=== PATIENT | female | born 1950 | race Caucasian/White ===

== ENCOUNTER → 2016-08-25 | Outpatient (CLI) | payer OTHER ==
--- NOTE | 2016-08-25 11:31 | US ---
EXAM DESCRIPTION: MAMMO BREAST DIAGNOSTIC UNILATERAL ; US BREAST UNILATERAL Images were reviewed with R2 computer-aided detection. CLINICAL HISTORY: Six-month followup probably benign nodule right breast 10 o'clock. COMPARISON: Ultrasound from 02/11/2016 and baseline mammogram from 01/25/2016. FINDINGS: True lateral and spot compression films demonstrated a well-defined nodule right breast 10 o'clock with fatty hilum not definitively confirmed. The glandular tissue is near completely fatty involuted. Skin calcifications are seen medially in the breast. Directed ultrasound confirms a fatty hilum period no sonographically suspicious finding. IMPRESSION: Benign exam. Small nodule upper outer right breast 10 o'clock corresponds to an intramammary lymph node. BIRAD CATEGORY: 2 BENIGN RECOMMENDATION: FOLLOW-UP: Routine annual mammography with exam due in January 2017. Findings and recommendations were communicated to the patient by the technologist. According to the [employer], yearly mammograms are recommended starting at age 40 and continuing as long as a woman is in good health. Any breast change noted on a breast self-exam should be reported promptly to the patient's healthcare provider. Breast MRI is recommended for women with an approximately 20-25% or greater lifetime risk of breast cancer, including women with a strong family history of breast or ovarian cancer and women who have been treated for Hodgkin's disease. Electronically signed by: Carmel Velasquez 08/25/2016 11:29
== END | disposition home or self-care (01) ==
LOC: MAMMO 10:19
PROVIDERS: ATTEND Family Medicine
DX: R92.8 Other abnormal and inconclusive findings on diagnostic imaging of breast (principal)

== ENCOUNTER → 2016-12-13 | Outpatient (CLI) | payer OTHER ==
--- NOTE | 2016-12-13 10:22 | CT ---
EXAM DESCRIPTION: Abdoment/Pelvis w/o Contrast CLINICAL HISTORY: GENERALIZED ABDOMINAL PAIN COMPARISON: None Available TECHNIQUE: CT of the abdomen and Pelvis was performed without IV contrast. This exam was performed according to our departmental dose-optimization program, which includes automated exposure control, adjustment of the mA and/or kV according to patient size and/or use of iterative reconstruction technique. FINDINGS: There is no lung base abnormality. No pneumoperitoneum, ascites or adenopathy. There are mural calcifications in the abdominal aorta without aneurysm. There are few tiny calcified gallstones in the gallbladder without pericholecystic inflammation or fluid. The liver, spleen, kidneys and adrenals are unremarkable for noncontrast technique. There are a few tiny pancreatic calcifications which may be related to remote pancreatitis, but the pancreas is otherwise unremarkable for noncontrast technique. No dilated small bowel loops. Normal appendix. The uterus and ovaries are unremarkable for patient's age. No bladder wall thickening. There is a moderate amount stool and gas scattered throughout the colon without colonic wall thickening or pericolonic inflammation. There are degenerative changes in the lumbar spine multiple levels. There is an old L4 compression fracture resulting in approximately 60% loss of vertebral body height. IMPRESSION: Cholelithiasis without CT evidence of cholecystitis. No additional intra-abdominal abnormality to explain generalized abdominal pain. Old L4 compression fracture and degenerative changes. Electronically signed by: Walker Soares MD 12/13/2016 10:22 AM CDT Workstation: [id number]
== END | disposition home or self-care (01) ==
LOC: CT 07:39
PROVIDERS: ATTEND Family Medicine
DX: R10.84 Generalized abdominal pain (principal)

== ENCOUNTER 2017-01-09 05:57 | Day surgery (SDC) | payer OTHER ==
--- NOTE | 2017-01-04 08:21 | RAD ---
EXAM DESCRIPTION: Chest,2 Views CLINICAL HISTORY: 66 years Female, preoperative evaluation. COMPARISON: None. IMPRESSION: Heart size and pulmonary vascularity are within normal limits. The thoracic aorta is tortuous and contains mild calcific plaque. The lungs are hyperexpanded. There is no airspace consolidation, pleural effusion, or pneumothorax. Moderate anterior wedging of a midthoracic vertebral body which is age-indeterminate. Correlate for point tenderness and consider follow-up MRI if indicated. Electronically signed by: Dipesh Rose MD 01/04/2017 8:20 AM CDT
[2017-01-09] MEDS ORDERED: levoFLOXacin 500MG IV 100 ML IVPB ONE (06:56)
[2017-01-09] MEDS ORDERED: LACTATED RINGERS 1,000 ML ONE (06:56)
[2017-01-09] MEDS ORDERED: fentaNYL CITRATE INJ 50 MCG/ML AMP ONE (07:49)
[2017-01-09] MEDS ORDERED: LIDOCAINE 2 % GEL 5 ML TUBE TOP ONE (07:49)
[2017-01-09] MEDS ORDERED: ROCURONIUM BROMIDE 10 MG/ML VIAL ONE (07:49)
[2017-01-09] MEDS ORDERED: BUPIVACAINE 0.25% W/EPI 50 ML VIAL INJ ONE (08:27)
[2017-01-09] MEDS ORDERED: HEPARIN SODIUM (PORCINE) 10,000 UNITS/ML VIAL ONE (08:27)
[2017-01-09] MEDS ORDERED: levoFLOXacin 500MG IV 500 MG/100 ML BAG IVPB ONE (08:40)
[2017-01-09] MEDS ORDERED: NALOXONE HCL INJ 0.4 MG/ML VIAL ONE (10:08)
[2017-01-09] MEDS ORDERED: HYDROcodone 5MG/APAP 325MG 1 EA TAB PO ONE (11:10)
[2017-01-09] MEDS ORDERED: HYDROcodone 5MG/APAP 325MG 1 EA TAB ONE (11:12)
--- NOTE | 2017-01-09 11:45 | OP ---
DATE OF PROCEDURE: 01/09/17 PREOPERATIVE DIAGNOSIS: 1. Symptomatic cholelithiasis. POSTOPERATIVE DIAGNOSIS: 1. Symptomatic cholelithiasis. 2. Chronic cholecystitis. PROCEDURE: 1. Laparoscopic cholecystectomy with intraoperative cholangiography using fluoroscopy. SURGEON: Efren Patel MD. SUPERVISOR [employer] DIVISION: None. ANESTHESIA: Local infiltration of 0.25% Marcaine with epinephrine and general endotracheal anesthesia. INDICATION: The patient is a 66-year-old female who has had gallbladder symptoms for many years. She has recently had increasing right upper quadrant tenderness, belching, flatus and fatty food intolerance. She has a CT scan showing gallstones. 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 The patient continued her aspirin preoperatively. FINDINGS: The gallbladder had multiple adhesions to the gallbladder. Otherwise, it was thin walled. There were multiple small stones. Intraoperative cholangiography revealed no filling defects, but the bile duct was somewhat dilated and early and initial installation of contrast did not show good flow into the duodenum, however, when it was completely filled, it emptied easily into the duodenum. There were also no strictures identified. DESCRIPTION OF PROCEDURE: After adequate general endotracheal anesthesia was obtained, the patient was prepped and draped in the usual sterile manner. Preoperative antibiotics were given. Surgical time-out was taken. The infraumbilical area was infiltrated with 0.25% Marcaine with epinephrine. A curvilinear incision was fashioned in the infraumbilical area and dissection was carried down through the subcutaneous tissue to the midline fascia. Traction sutures were placed on either side of the midline. A small incision was made in the midline fascia and the peritoneum was opened bluntly. Sommer trocar was introduced under direct vision into the abdominal cavity and fixed in place with the 20 mL balloon. CO2 was then insufflated until a pressure of 12 mmHg was reached and the abdomen was tympanitic in all four quadrants. When this was done, the laparoscope was introduced. The abdomen was inspected with the previously noted findings. The patient was then placed in reverse Trendelenburg position, turned to the left side. The upper abdominal ports were placed under direct vision. The gallbladder was grasped, retracted anteriorly and superiorly. The adhesions to the gallbladder were then taken down using electrocautery and blunt dissection. The neck of the gallbladder was retracted laterally. The triangle of Calot was then explored with the cystic duct was hemoclipped once proximally. The cystic artery was hemoclipped twice proximally and once distally on each branch. A small incision was made in the cystic duct. The cholangiogram catheter was introduced through a separate stab wound in the right upper quadrant, introduced into the cystic duct and clipped in place. Cholangiograms were then taken using fluoroscopy which revealed free flow into the duodenum after the initial delay, then no filling defects or strictures noted. When this was done, the cystic duct catheter was removed. The cystic duct was hemoclipped three times distally and divided between the hemoclips. The cystic artery was divided. The gallbladder was then easily dissected free from the gallbladder bed of the liver using electrocautery. The gallbladder was placed in an EndoCatch bag and removed from the infraumbilical port site in the usual manner under direct vision. When this was done, the subhepatic space and subphrenic space were irrigated copiously with saline. The effluent was noted to be clear. The subha hepatis was inspected and no bleeding or bile leak was identified. The upper abdominal ports were removed under direct vision and good hemostasis was noted. At this point, the CO2, the laparoscope and the infraumbilical port were removed. The infraumbilical port site fascia was approximated with a single [id number] suture of 0 Vicryl. Subcutaneous tissue was irrigated with saline. Skin edges were approximated with 4-0 Vicryl subcuticular sutures, benzoin and Steri- Strips. Sterile dressings were applied. The patient was awakened and taken to the Recovery Room in good and stable condition. Estimated blood loss was less than 25 mL. All sponge, needle and instrument counts were correct. #[id number] [facility]
[2017-01-09] MEDS ORDERED: ePHEDrine SULF 50 MG/ML IV ONE (12:00)
[2017-01-09] MEDS ORDERED: ATROPINE SULFATE 0.4 MG/ML 1ML VIAL IV ONE (12:00)
[2017-01-09] MEDS ORDERED: LIDOCAINE 1% 10 ML VIAL INJ ONE (12:00)
[2017-01-09] MEDS ORDERED: PROPOFOL 200 MG/20 ML VIAL IV ONE (12:00)
[2017-01-09] MEDS ORDERED: NEOSTIGMINE METHYLSULFATE 1 MG/ML ML IV ONE (12:00)
[2017-01-09 12:32] VITALS: BP 156/84; TEMP 97.8; O2SAT 96
== END 2017-01-09 12:20 | disposition home or self-care (01) ==
LOC: AMB 05:57
PROVIDERS: ATTEND Surgery
DX: K80.10 Calculus of gallbladder with chronic cholecystitis without obstruction (principal); I10 Essential (primary) hypertension; E11.9 Type 2 diabetes mellitus without complications; K21.9 Gastro-esophageal reflux disease without esophagitis; E78.5 Hyperlipidemia, unspecified; F17.210 Nicotine dependence, cigarettes, uncomplicated; F41.9 Anxiety disorder, unspecified; G47.30 Sleep apnea, unspecified; G89.29 Other chronic pain; M54.5 Low back pain; R00.1 Bradycardia, unspecified; M85.80 Other specified disorders of bone density and structure, unspecified site; M25.559 Pain in unspecified hip; Z88.8 Allergy status to other drugs, medicaments and biological substances; Z79.82 Long term (current) use of aspirin; Z79.84 Long term (current) use of oral hypoglycemic drugs; Z79.899 Other long term (current) drug therapy
CPT/HCPCS: 00790; 36415; 36416; 47563; 71020; 76000; 80053; 81001; 82948; 85025; 87086; 93005; J1644; J1956; J2310; J2710; J3010; J3490; J7120

== ENCOUNTER → 2017-05-05 | Outpatient (CLI) | payer OTHER | END | disposition home or self-care (01) | LOC: GMAH 10:10 | PROVIDERS: ATTEND Family Medicine | DX: E78.2 Mixed hyperlipidemia (principal) ==

== ENCOUNTER → 2018-05-24 | Outpatient (CLI) | payer OTHER | LOC: GMAH 11:32 | PROVIDERS: ATTEND Family Medicine | DX: I10 Essential (primary) hypertension (principal); E78.2 Mixed hyperlipidemia; E11.9 Type 2 diabetes mellitus without complications ==

== ENCOUNTER 2019-07-05 10:13 | Emergency (ER) | payer OTHER ==
[2019-07-05] MEDS ORDERED: MORPHINE SULFATE INJ 10 MG/ML VIAL IV ONE ×2 (10:29→12:28)
[2019-07-05] MEDS ORDERED: ONDANSETRON INJ 4 MG/2 ML VIAL IV ONE (10:30)
--- NOTE | 2019-07-05 10:34 | ED.PDOC ---
History of Present Illness - General Chief Complaint: Trauma Stated Complaint: R arm/shoulder pain, L forearm pain Time Seen by Provider: 07/05/19 10:17 Source: patient, RN notes reviewed, Vital Signs reviewed, family - daughter Exam Limitations: no limitations - History of Present Illness Initial Comments: patient is a 69-year-old white female who presents to the emergency Department with complaints of right arm pain as well as left elbow and forearm pain status post trip and fall at her daughter's home. She denies any head injuries, loss of consciousness or nausea. Patient with significant right upper arm and shoulder pain. Patient denies any headache, blurry vision, nausea, vomiting, diarrhea, chest pain, shortness of breath. The pain is 9 out of 10. It is throbbing and sharp. Palpation or movement. Better with rest though it does not completely relieve the pain. Every onset right after the fall. Timing/Duration: 1/2 hour Severity: severe Improving Factors: immobilization, rest Worsening Factors: movement Associated Symptoms: denies symptoms Allergies/Adverse Reactions: Allergies NO KNOWN ALLERGY Allergy (Verified 01/04/17 07:40) Home Medications: Ambulatory Orders ALPRAZolam [Xanax] 0.5 mg PO TID 01/04/17 Aspirin [Aspirin Adult Low Dose] 81 mg PO DAILY@0701/04/17 Lisinopril 20 mg PO DAILY@0701/04/17 Meloxicam 7.5 mg PO DAILY 01/04/17 Metformin HCl [Metformin Hydrochloride] 1,000 mg PO DAILY@0701/04/17 Metformin HCl [Metformin Hydrochloride] 1,500 mg PO QPM 01/04/17 Propranolol HCl [Propranolol HCl ER] 120 mg PO DAILY@0701/04/17 Simvastatin 20 mg PO QPM 01/04/17 Acetaminophen W/ Codeine [Tylenol W/ CODEINE #3] 1 ea PO Q6H #20 07/05/19 Ondansetron Odt [Zofran ODT] 4 mg PO Q6H #20 tab 07/05/19 Review of Systems - Review of Systems Constitutional: States: no symptoms reported, see HPI EENTM: States: no symptoms reported Respiratory: States: no symptoms reported Cardiology: States: no symptoms reported Gastrointestinal/Abdominal: States: no symptoms reported Genitourinary: States: no symptoms reported Musculoskeletal: States: see HPI, joint pain, joint swelling. Denies: back pain, neck pain Skin: States: other - patient with abrasions to the dover of her right leg. Neurological: States: no symptoms reported Endocrine: States: no symptoms reported Hematologic/Lymphatic: States: no symptoms reported All other Systems: Reviewed and Negative Past Medical History (General) - Patient Medical History Hx Congestive Heart Failure: No Hx Hypertension: Yes Hx Diabetes: Yes - FSBS 101 Hx MRSA: No Hx Other PMH: Yes - anxiety Family Medical History - Family History Mother Family History: Unknown Living Status: Unknown Physical Exam - Physical Exam General Appearance: Alert, Anxious, Obvious distress, Well Developed, Well Groomed, Well Hydrated, Well Nourished Eye Exam: bilateral normal Ears, Nose, Throat: hearing grossly normal, normal ENT inspection, normal pharynx Neck: non-tender, full range of motion, supple, normal inspection Respiratory: chest non-tender, lungs clear, no respiratory distress, no accessory muscle use Cardiovascular/Chest: normal peripheral pulses, regular rate, rhythm, no edema, no gallop, no JVD, no murmur Peripheral Pulses: radial,right: 2+, radial,left: 2+ Gastrointestinal/Abdominal: normal bowel sounds, non tender, soft, no organomegaly, no pulsatile mass Back Exam: normal inspection, no CVA tenderness, no vertebral tenderness Extremity: normal capillary refill, pelvis stable, other - patient with tenderness to palpation with reduced range of motion of the right shoulder and right humerus. Additionally patient with tenderness to palpation of the left elbow and left forearm with normal cap refill.. He says neurovascularly intact distally. 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 Lymphatic: no adenopathy Progress - Progress Progress: differential diagnosis: Right humerus fracture, right clavicle fracture, right shoulder contusion, left elbow fracture among others. 07/05/19 12:30 Patient found to have a right humeral neck fracture with a left radial head fracture. In discussions with the orthopedic surgeon, Dr. Chin, plan on shoulder immobilizer on the right and to leave the left radial fracture and splinted. We have given the patient strong warnings about not lifting anything and limiting the utilization of that left arm. Patient voices understanding and agreement with the plan of care. We have also discussed this plan of care with the daughter who voices understanding and agreement. Plan on discharge home at this time. Juan Nick M.D. #[id number] - Results/Orders Results/Orders: FINDINGS: A nondisplaced fracture of the surgical neck of the right humerus is observed. There is minimal impaction evident. No further injury is detected. IMPRESSION: Nondisplaced fracture of the surgical neck of the right humerus. Electronically signed by: Binu Palma MD 07/05/2019 11:18 AM 2 views left FINDINGS: The exam reveals evidence of a joint effusion. A nondisplaced radial neck fracture is observed. IMPRESSION: Left radial neck fracture. Electronically signed by: Binu Palma MD 07/05/2019 11:15 AM Departure - Departure Clinical Impression: Humerus surgical neck fracture Qualifiers: Encounter type: initial encounter Fracture type: closed Fracture morphology: unspecified fracture morphology Fracture alignment: nondisplaced Laterality: right Qualified Code(s): S42.214A - Unspecified nondisplaced fracture of surgical neck of right humerus, initial encounter for closed fracture Fracture of radial head, left, closed Qualifiers: Encounter type: initial encounter Fracture alignment: nondisplaced Qualified Code(s): S52.125A - Nondisplaced fracture of head of left radius, initial encounter for closed fracture Fall Qualifiers: Encounter type: initial encounter Qualified Code(s): W19.XXXA - Unspecified fall, initial encounter Time of Disposition: 12:36 Disposition: Discharge to Home or Self Care Condition: Good Departure Forms: ED Discharge - Pt. Copy, Patient Portal Self Enrollment Instructions: Shoulder Fracture (DC), Radius Fracture (DC), Preventing Falls in the Older Adult Referrals: Macy Mendoza NP [Primary Care Provider] - 1-2 Weeks Sanford Hernandez MD [Active Staff] - 07/08/19 Prescriptions: Acetaminophen W/ Codeine [Tylenol W/ CODEINE #3] 1 ea PO Q6H #20 Ondansetron Odt [Zofran ODT] 4 mg PO Q6H #20 tab Home Medications: Ambulatory Orders ALPRAZolam [Xanax] 0.5 mg PO TID 01/04/17 Aspirin [Aspirin Adult Low Dose] 81 mg PO DAILY@0701/04/17 Lisinopril 20 mg PO DAILY@0701/04/17 Meloxicam 7.5 mg PO DAILY 01/04/17 Metformin HCl [Metformin Hydrochloride] 1,000 mg PO DAILY@0701/04/17 Metformin HCl [Metformin Hydrochloride] 1,500 mg PO QPM 01/04/17 Propranolol HCl [Propranolol HCl ER] 120 mg PO DAILY@0701/04/17 Simvastatin 20 mg PO QPM 01/04/17 Acetaminophen W/ Codeine [Tylenol W/ CODEINE #3] 1 ea PO Q6H #20 07/05/19 Ondansetron Odt [Zofran ODT] 4 mg PO Q6H #20 tab 07/05/19
[2019-07-05 10:35] VITALS: TEMP 97.2
[2019-07-05] MEDS ORDERED: TETANUS,DIPHTHERIA,PERTUSSIS 1 EA SYG IM ONE (10:37)
--- NOTE | 2019-07-05 11:16 | RAD ---
EXAM DESCRIPTION: Elbow,Left 2 Views CLINICAL HISTORY: possible fracture COMPARISON: None. TECHNIQUE: 2 views left FINDINGS: The exam reveals evidence of a joint effusion. A nondisplaced radial neck fracture is observed. IMPRESSION: Left radial neck fracture. Electronically signed by: Binu Palma MD 07/05/2019 11:15 AM [facility]
--- NOTE | 2019-07-05 11:17 | RAD ---
EXAM DESCRIPTION: Chest,1 View CLINICAL HISTORY: possible fracture COMPARISON: 04 January 2017 TECHNIQUE: AP portable chest FINDINGS: The lungs are clear. There is no infiltrate or effusion. The heart is normal size. IMPRESSION: Normal portable chest Electronically signed by: Binu Palma MD 07/05/2019 11:16 AM [facility]
--- NOTE | 2019-07-05 11:18 | RAD ---
EXAM DESCRIPTION: Forearm,Left CLINICAL HISTORY: poss fracture COMPARISON: None. TECHNIQUE: 2 views left FINDINGS: A minimally impacted radial neck fracture is observed. Mild osteopenia is observed throughout the forearm. No further fracturing is detected. IMPRESSION: A right radial neck fracture is observed. Electronically signed by: Binu Palma MD 07/05/2019 11:17 AM [facility]
--- NOTE | 2019-07-05 11:19 | RAD ---
EXAM DESCRIPTION: Humerus,Right CLINICAL HISTORY: possible fracture COMPARISON: None. TECHNIQUE: 2 views right FINDINGS: A nondisplaced fracture of the surgical neck of the right humerus is observed. There is minimal impaction evident. No further injury is detected. IMPRESSION: Nondisplaced fracture of the surgical neck of the right humerus. Electronically signed by: Binu Palma MD 07/05/2019 11:18 AM [facility]
[2019-07-05 17:21] VITALS: BP 150/86; O2SAT 98
== END 2019-07-05 12:40 | disposition home or self-care (01) ==
LOC: ER 10:13
DX: S42.214A Unspecified nondisplaced fracture of surgical neck of right humerus, initial encounter for closed fracture (principal); S52.125A Nondisplaced fracture of head of left radius, initial encounter for closed fracture; I10 Essential (primary) hypertension; E11.9 Type 2 diabetes mellitus without complications; F41.9 Anxiety disorder, unspecified; Z23 Encounter for immunization; Z79.84 Long term (current) use of oral hypoglycemic drugs; Z79.82 Long term (current) use of aspirin; Z79.899 Other long term (current) drug therapy; W01.0XXA Fall on same level from slipping, tripping and stumbling without subsequent striking against object, initial encounter; Y92.009 Unspecified place in unspecified non-institutional (private) residence as the place of occurrence of the external cause
CPT/HCPCS: 71045; 73060; 73070; 73090; 90471; 90715; J2270; J2405

== ENCOUNTER → 2019-07-08 | Outpatient (CLI) | payer OTHER ==
--- NOTE | 2019-07-08 10:00 | RAD ---
EXAM DESCRIPTION: Wrist,Left 3 Views CLINICAL HISTORY: PAIN IN LEFT WRIST COMPARISON: 05 July 2019 TECHNIQUE: 3 views left FINDINGS: Degenerative changes are observed in the metacarpal carpal articulation of the first digit. No fracturing is detected. IMPRESSION: Degenerative changes are observed in the metacarpal carpal articulation of the first digit. No fracturing is detected. Electronically signed by: Binu Palma MD 07/08/2019 9:59 AM [facility]
--- NOTE | 2019-07-08 10:02 | RAD ---
EXAM DESCRIPTION: Shoulder,Right 1 View CLINICAL HISTORY: PAIN IN RIGHT SHOULDER COMPARISON: Right humerus radiograph 07/05/2019.. TECHNIQUE: One views of the right shoulder. FINDINGS/IMPRESSION: Single view of the right shoulder redemonstrate a nondisplaced fracture of the surgical neck of the right humerus (with extension to the right greater tuberosity). Mild widening of the subacromial space may be related to a right shoulder joint effusion. No shoulder dislocation. The right acromioclavicular joint appears intact. Electronically signed by: Elpidio Rich DO 07/08/2019 10:00 AM [facility]
== END ==
LOC: RAD 08:34
PROVIDERS: ATTEND Orthopaedic Surgery
DX: S42.214D Unspecified nondisplaced fracture of surgical neck of right humerus, subsequent encounter for fracture with routine healing (principal); M19.032 Primary osteoarthritis, left wrist

== ENCOUNTER → 2019-07-15 | Outpatient (CLI) | payer OTHER ==
--- NOTE | 2019-07-15 09:52 | RAD ---
EXAM DESCRIPTION: Shoulder,Right 2 or More Views CLINICAL HISTORY: 69 years Female, FX COMPARISON: 07/08/2019 Findings: Two images Visualized chest is clear. Mild acromioclavicular osteoarthritis. Widening of the subacromial space. Similar glenohumeral osteoarthritis. Unchanged alignment of the previously described proximal humerus fracture. No significant interval healing. No new fracture identified. IMPRESSION: Similar alignment of the previously described proximal right humerus fracture. Electronically signed by: Tip Cool MD 07/15/2019 9:51 AM [facility]
--- NOTE | 2019-07-15 09:55 | RAD ---
EXAM DESCRIPTION: Elbow,Left 3 Views CLINICAL HISTORY: 69 years Female, FX COMPARISON: 07/05/2019 Findings: Three images Redemonstrated nondisplaced radial neck fracture. Stable alignment. No significant interval healing. No new fracture. No dislocation. Osteopenia. No significant joint effusion. IMPRESSION: Similar alignment of the radial neck fracture. No significant interval healing. Electronically signed by: Tip Cool MD 07/15/2019 9:54 AM [facility]
== END ==
LOC: RAD 08:53
PROVIDERS: ATTEND Orthopaedic Surgery
DX: S52.132D Displaced fracture of neck of left radius, subsequent encounter for closed fracture with routine healing (principal); S42.201D Unspecified fracture of upper end of right humerus, subsequent encounter for fracture with routine healing

== ENCOUNTER → 2019-07-29 | Outpatient (CLI) | payer OTHER ==
--- NOTE | 2019-07-29 11:50 | RAD ---
EXAM DESCRIPTION: Elbow,Left 3 Views CLINICAL HISTORY: 69 years Female, CLOSED FRACTURE OF NECKK OF LEFT RADIUS COMPARISON: None available. FINDINGS: The visualized bones are well-mineralized. Some progressive healing of the fracture of the neck of the radius compared to prior examinations. The soft tissues appear grossly unremarkable. IMPRESSION: Some progressive healing of the fracture of the neck of the radius compared to prior examinations. Electronically signed by: Nelsy Pascal MD 07/29/2019 11:48 AM [facility]
--- NOTE | 2019-07-29 11:53 | RAD ---
EXAM DESCRIPTION: Shoulder,Right 2 or More Views CLINICAL HISTORY: CLOSED FRACTURE OF PROXIMAL RIGHT HUMERUS COMPARISON: 15 July 2019 TECHNIQUE: 2 views right FINDINGS: Prior fracturing of the proximal humerus is observed. Callus formation is observed the fracture site. No acute fracturing or dislocation is seen. IMPRESSION: A healing fracture of the proximal humeral shaft is observed Electronically signed by: Binu Palma MD 07/29/2019 11:[address] [facility]
== END ==
LOC: RAD 10:06
PROVIDERS: ATTEND Orthopaedic Surgery
DX: S42.201D Unspecified fracture of upper end of right humerus, subsequent encounter for fracture with routine healing (principal); S52.132D Displaced fracture of neck of left radius, subsequent encounter for closed fracture with routine healing

== ENCOUNTER → 2019-08-19 | Outpatient (CLI) | payer OTHER ==
--- NOTE | 2019-08-19 13:14 | RAD ---
EXAM DESCRIPTION: Shoulder,Right 2 or More Views CLINICAL HISTORY: 69 years Female, CLOSED FX OF PROX RIGHT HUMERUS COMPARISON: July 29, 2019 Findings: Two views/radiographs The chest is clear. Similar mild acromioclavicular osteoarthritis. Similar glenohumeral osteoarthritis. Similar alignment of the previously described proximal humerus fracture. Slight interval healing callus formation. No solid osseous bridging. No new fracture. No dislocation. IMPRESSION: Healing proximal right humerus fracture. Similar alignment. Electronically signed by: Tip Cool MD 08/19/2019 1:12 PM [facility]
--- NOTE | 2019-08-19 13:16 | RAD ---
EXAM DESCRIPTION: Elbow,Left 3 Views CLINICAL HISTORY: CLOSED FX OF NECK OF LEFT RADIUS COMPARISON: Abdominal radiograph most recent dated 07/29/2019. TECHNIQUE: AP, Lateral, and Oblique left elbow. FINDINGS/IMPRESSION: Images of the left elbow demonstrate a healing nondisplaced radial neck fracture with interval progressive bridging callus formation/sclerosis. There is stable osseous alignment. Electronically signed by: Elpidio Rich DO 08/19/2019 1:15 PM [facility]
== END ==
LOC: RAD 10:01
PROVIDERS: ATTEND Orthopaedic Surgery
DX: S52.132D Displaced fracture of neck of left radius, subsequent encounter for closed fracture with routine healing (principal); S42.201D Unspecified fracture of upper end of right humerus, subsequent encounter for fracture with routine healing

== ENCOUNTER → 2019-09-06 | Outpatient (CLI) | payer OTHER ==
--- NOTE | 2019-09-06 20:25 | RAD ---
EXAM: Elbow,Left 3 Views CLINICAL HISTORY: CLOSED FX OF NECK OF LEFT RADIUS COMPARISON STUDY: August 19, 2019 TECHNICAL: AP and lateral x-rays of the left elbow FINDINGS: The transverse fracture through the proximal aspect of the radius is again identified and shows ongoing healing at the fracture site. A portion of the fracture line remains lucent. There is no new fracture or dislocation. IMPRESSION: Healing left proximal radial fracture. Electronically signed by: Erick Murray MD 09/06/2019 8:23 PM [facility]
--- NOTE | 2019-09-06 20:26 | RAD ---
EXAM: Shoulder,Right 2 or More Views CLINICAL HISTORY: FX OF PROXIMAL RT HUMERUS COMPARISON STUDY: August 19, 2019 TECHNICAL: Internal and external rotation x-rays of the right shoulder FINDINGS: A transverse fracture through the right proximal humerus is again identified. The fracture fragments are minimally displaced but unchanged. New bone formation is seen but the fracture line remains lucent. There is no dislocation or new fracture. IMPRESSION: Healing right proximal humerus fracture. Electronically signed by: Erick Murray MD 09/06/2019 8:25 PM [facility]
--- NOTE | 2019-09-06 20:28 | RAD ---
EXAM: Elbow,Right 3 Views CLINICAL HISTORY: ELBOW PAIN COMPARISON STUDY: None TECHNICAL: AP and lateral x-rays of the right elbow FINDINGS: No fracture or dislocation. No visible joint effusion. There are minimal degenerative changes. No soft tissue abnormality. IMPRESSION: No acute abnormality. Electronically signed by: Erick Murray MD 09/06/2019 8:27 PM [facility]
== END ==
LOC: RAD 09:49
PROVIDERS: ATTEND Orthopaedic Surgery
DX: S42.201D Unspecified fracture of upper end of right humerus, subsequent encounter for fracture with routine healing (principal); S52.132D Displaced fracture of neck of left radius, subsequent encounter for closed fracture with routine healing; M25.521 Pain in right elbow

== ENCOUNTER → 2020-07-15 | Outpatient (CLI) | payer OTHER ==
--- NOTE | 2020-07-16 12:28 | MAM ---
EXAM DESCRIPTION: 3D Screening BILATERAL : Digital Mammography. CLINICAL HISTORY: 70 years Female SCREENING . No complaints and no family history of breast cancer. Menarche age 14. Childbirth age 20. Menopause age 57. No HRT. Lifetime risk of developing breast cancer (Tyrer-Cuzick model)(%): 4.0. COMPARISON: Bilateral screening digital breast 2-D imaging August 2016 and January 2016. Low-dose CT lung cancer screening examination on this visit. TECHNIQUE: Bilateral CC and MLO projection full-field images, digital tomosynthesis mammographic technique. Bilateral digital 2-D full-field MLO images. CAD available for 2-D images. FINDINGS: The breast parenchymal density pattern is: Scattered areas of fibroglandular density. Solitary microcalcifications. Stable intramammary lymph nodes. No skin thickening or nipple retraction No new focal, stellate mass or density, focal asymmetry , and no suspicious microcalcifications bilaterally. Stable mammograms compared to prior study. Taking into account, differences in mammographic technique. IMPRESSION: Benign exam. BIRAD CATEGORY: 2 BENIGN FINDINGS. RECOMMENDATIONS: FOLLOW UP: Routine digital bilateral mammographic screening, one year interval from June 2020. Written communication explaining the IMPRESSION and follow-up, will be mailed to the patient and referring health care provider. According to the [employer], yearly mammograms are recommended starting at age 40 and continuing as long as a woman is in good health. Any breast change noted on a breast self-exam should be reported promptly to the patient's healthcare provider. Breast MRI is recommended for women with an approximately 20-25% or greater lifetime risk of breast cancer, including women with a strong family history of breast or ovarian cancer and women who have been treated for Hodgkin's disease. A negative mammographic report should not delay tissue diagnosis in patients with significant clinical history or physical findings. Extremely dense breast tissue limits the sensitivity of digital mammography. Electronically signed by: Raad Clay MD 07/16/2020 12:26 PM [facility]
== END ==
LOC: MAMMO 10:36
PROVIDERS: ATTEND Family Medicine
DX: Z12.31 Encounter for screening mammogram for malignant neoplasm of breast (principal)

== ENCOUNTER → 2020-07-16 | Outpatient (CLI) | payer OTHER ==
--- NOTE | 2020-07-16 13:44 | CT ---
Procedure: CT LUNG SCREENING Exam Date: July 16, 2020. Ordering Provider: Raad Portillo Clinical Indication: tobacco user . Current cigarette smoker. 45 pack years. This patient meets eligibility criteria for low-dose CT lung cancer screening. Comparison: Baseline low-dose CT lung screening examination. CT abdomen and pelvis November 2016. Technique: Using a multislice scanner, sequential helical axial imaging was obtained in the thorax, 2.5 mm thickness, 2.5 mm separation, from the level of the thoracic inlet through the lung bases without IV contrast. A low dose protocol was utilized for BMI less than 30: BMI: 19. CTDI: 1.75 mGy. 120. kVp. 45 mA. DLP 63 mGy-cm. 2D sagittal and coronal reconstructed images, 6.0 mm thickness, were obtained. This exam was performed according to our departmental dose optimization program which includes use of automated exposure control, adjustment of the mA and/or kV according to patient size and/or use of iterative reconstruction technique. Nodule measurements under 10 mm are given as mean value of 3 axes diameters. FINDINGS: Lungs and large airways: 3 mm subpleural solid nodule superior segment right lower lobe posterior, on axial series 2, image 53. Similar size solid nodule anterolateral subpleural right upper lobe on image 2/37. Subpleural blebs bilaterally. 6 mm calcified subpleural nodule posterior right lower lobe on image 2/87. Bilateral lower lobe subpleural scarring. No abnormal nodules or masses. No acute infiltrate. Pleura and space: No calcifications are significant thickening. No acute process. Mediastinum and sparkle: evaluation limited by low dose technique and lack of IV contrast. No enlarged lymph nodes. No dominant soft tissue masses. Heart and great vessels: Ectasia of the aortic arch with atherosclerotic calcification which is also involving several brachiocephalic vessels. Multiple coronary artery calcifications. Chest wall, lower neck, axillae: Evaluation also limited by same factors as described above. Slight enlargement of the left thyroid lobe with 1.1 cm nodule above the level of the isthmus. Calcification in the medial lobe. Typical appearance of axillary nodes. No dominant soft tissue mass. Upper abdomen: Evaluation limited by low-dose technique. No free air or free fluid. Normal size and density of the adrenal glands and spleen. Gallbladder partially visualized. Stomach distended with fluid and gas. Osseous structures: Evaluation limited by low dose MIP technique. Minimal spondylosis of the included thoracic spine and mild dextroscoliosis. Mild compression of the T7 vertebral body mostly central and anterior but no significant retropulsion. Age unknown. Minimal arthrosis in the shoulders, clavicle and sternal joints with no destructive or blastic lesions. IMPRESSION: 1. Mild emphysematous changes. Small subpleural nodules right lung.. [facility] Best Practice Recommendations: please see below for Lung RADS category and FOLLOW-UP.* *Lung RADS category CATEGORY 2- Nodules with a very low likelihood (less than 1%) of becoming a clinically active cancer due to size or lack of growth. Nodules: Perifissural nodule(s) < 10 mm. (526mm3). Solid or part solid nodule(s) less than 6mm (113.1 mm3), new solid nodule less than 4mm (33.5 mm3). Ground glass nodule(s) less than 30mm (41141.2 mm3) or unchanged or slow growing ground glass nodule 30mm or greater. Cat 3 or 4 nodule unchanged for 3 or more months. FOLLOW-UP: Continue annual screening with a Low Dose Chest CT in 12 months for re-evaluation. 2. Ectasia of the aortic arch. Calcifications of the coronary arteries. Mild fracture of the T7 vertebral body without significant retropulsion. Age unknown. Possibly seen on the sagittal [employer] image for the abdomen and pelvis CT scan in 2017. 3. 1.1 cm incidental left thyroid nodule. No follow-up imaging is recommended. Reference: J Am Caleb Radiol. 2014;12(2): 143-50 Electronically signed by: Raad Clay MD 07/16/2020 1:42 PM [facility]
== END ==
LOC: CT 09:19
PROVIDERS: ATTEND Family Medicine
DX: Z87.891 Personal history of nicotine dependence (principal); J43.9 Emphysema, unspecified; E04.1 Nontoxic single thyroid nodule; I77.819 Aortic ectasia, unspecified site; I25.10 Atherosclerotic heart disease of native coronary artery without angina pectoris; S22.068A Other fracture of T7-T8 thoracic vertebra, initial encounter for closed fracture